=== PATIENT | female | born 1980 | race Two or more races ===

== ENCOUNTER 2021-11-20 18:46 | Emergency (ER) | payer SELFPAY ==
[~2021-11-20] VITALS: Ht 172.7 cm; Wt 90.7 kg
[2021-11-20 18:52] VITALS: BP 110/81
== END 2021-11-20 22:13 | disposition left against medical advice (07) ==
LOC: ER 18:46
DX: M25.561 Pain in right knee (principal); Z53.21 Procedure and treatment not carried out due to patient leaving prior to being seen by health care provider; W01.0XXA Fall on same level from slipping, tripping and stumbling without subsequent striking against object, initial encounter; Y93.89 Activity, other specified; Y92.9 Unspecified place or not applicable; Y99.8 Other external cause status

== ENCOUNTER 2021-11-21 08:58 | Emergency (ER) | payer SELFPAY ==
[~2021-11-21] VITALS: Ht 170.2 cm; Wt 90.7 kg
[2021-11-21 10:03] VITALS: BP 130/79
== END 2021-11-21 11:56 | disposition home or self-care (01) ==
LOC: ER 08:58
DX: S80.01XA Contusion of right knee, initial encounter (principal); W01.0XXA Fall on same level from slipping, tripping and stumbling without subsequent striking against object, initial encounter; Y93.89 Activity, other specified; Y92.9 Unspecified place or not applicable; Y99.8 Other external cause status
CPT/HCPCS: 73562